=== PATIENT | female | born 1965 | race Caucasian/White ===

== ENCOUNTER 2022-10-24 11:54 | Observation (INO) | payer OTHER, SELFPAY ==
[2022-10-24] VITALS (8 sets, daily range): BP systolic 129–156; BP diastolic 78–95; PULSE 74–86; RESP 16–20; TEMP 36.2–36.7; O2SAT 97–99; BMI 36.4
--- NOTE | 2022-10-24 12:35 | DI.RAD.S_ITS ---
PROCEDURE: XR CHEST 1V INDICATIONS: chest pain TECHNIQUE: One view of the chest was acquired. COMPARISON: None. FINDINGS: Surgical changes and devices: None. Lungs and pleura: Lungs are clear. No pleural effusions or pneumothorax. Mediastinum: Mediastinal contours appear normal. Heart size is normal. Bones and chest wall: No suspicious bony lesions. Overlying soft tissues appear unremarkable. IMPRESSION: No evidence acute pulmonary process. Dictated by: Lucian Villagran M.D. on 10/24/2022 at 14:39 Approved by: Lucian Villagran M.D. on 10/24/2022 at 14:40
[2022-10-24 13:02] LABS: Add Manual Diff / Slide Review NO; Basophils Absolute Auto 100 /uL (0-100); Eosinophils Absolute Auto 200 /uL (0-450); Eosinophils Percent Auto 1.8 % (2-4); Hematocrit 42.1 % (36-46); Hemoglobin 14.3 g/dL (12.0-16.0); Lymphocytes Absolute Auto 2700 /uL (1100-4500); Mean Corpuscular Hemoglobin 29.3 PG (26-34); Monocytes Absolute Auto 700 /uL (0-900); Monocytes Percent Auto 7.7 % (3-14); Neutrophils Absolute Auto 5000 /uL (1500-7000); Neutrophils Percent Auto 58.5 % (50-75); Platelet Count 341 X10^3/uL (150-400); Red Blood Cell Count 4.89 X10^6/uL (4.0-5.2); Red Cell Distribution Width 13.5 % (11.6-14.8); White Blood Cell Count 8.6 X10^3/uL (4.5-11.0)
--- NOTE | 2022-10-24 13:04 | ED.GENADULT ---
HPI - General Adult General Chief complaint: Dizziness Stated complaint: lightheaded/dizzy Time Seen by Provider: 10/24/22 12:47 Mode of arrival: Ambulatory History of Present Illness HPI narrative: Patient complains off and on left chest pain and neck pain with palpitations in the past 2 weeks. Has not been able to see primary care for this problem. History of stress test 2 years ago in [facility] outpatient. She states the results did show leaky valve on echocardiogram. She did follow up with a engineer steam. She states that the results were reassuring at that time. Patient today had worsening palpitations. She did have left-sided chest pain left neck pain yesterday. She thought it was a spasm and took home Flexeril at bedtime. Awoke this morning without neck pain or chest pain but has had intermittent dizziness through the day with elevated heart rate up to 120 beats per minute. Family history reveals father with [place]/. Patient does not smoke. She does have high blood pressure. Dizziness is not triggered by any events. No recent fluid loss no nausea vomiting diarrhea no black or bloody stools. Related Data Home Medications Medication Instructions Recorded Confirmed lisinopril 20 mg tablet 20 mg PO BEDTIME blood pressure 10/24/22 10/24/22 meloxicam 15 mg tablet 15 mg PO DAILY arthritis 10/24/22 10/24/22 Allergies Allergy/AdvReac Type Severity Reaction Status Date / Time sulfamethoxazole Allergy Verified 10/24/22 12:21 [From Bactrim] trimethoprim [From Bactrim] Allergy Verified 10/24/22 12:21 Review of Systems Review of Systems Narrative: GENERAL: negative chills, fatigue, malaise, fever, sweats. HEENT: negative sinus pain, ear pain, sore throat RESPIRATORY: negative dyspnea, cough CARDIOVASCULAR: Positive chest pain, palpitations GASTROINTESTINAL: negative nausea, vomiting, abdominal pain : negative dysuria, frequency, hematuria MUSCULOSKELETAL: negative muscle or bony pain SKIN: negative rash, skin lesions NEUROLOGIC: negative weakness, numbness positive dizziness ROS Unobtainable: All systems reviewed & are unremarkable except as noted in HPI and below Patient History Medical History (Updated 10/24/22 @ 16:57 by Adarsh Wbeb DO) HTN (hypertension) Surgical History (Updated 10/24/22 @ 16:57 by Adarsh Webb DO) No pertinent past surgical history Family History (Updated 10/24/22 @ 16:58 by Adarsh Webb DO) Grandfather CAD (coronary artery disease) Social History (Updated 10/24/22 @ 16:58 by Adarsh Webb DO) household members: none Smoking Status: Never smoker alcohol intake: never substance use type: does not use Smoking Status: Never smoker Substance Use Type: does not use Exam Narrative Exam Narrative: GENERAL: in no distress, not toxic not dyspneic HEAD: Normocephalic. EYES: Pupils equal round ENT: Mucous membranes moist. NECK: Trachea midline. CARDIOVASCULAR: Regular rate and rhythm RESPIRATORY: Clear to auscultation. Breath sounds equal bilaterally. No wheezes, rales, or rhonchi. GASTROINTESTINAL: Abdomen soft, non-tender EXTREMITIES: No gross deformities. BACK: No flank tenderness. NEURO: AOx4. Patient stood up at bedside. No dizziness. Steady self gait, not ataxic, no dizziness. SKIN: Warm and dry PSYCH: Not anxious, is cooperative Initial Vital Signs Initial Vital Signs: Vital Signs Temperature 98.0 F 10/24/22 12:22 Pulse Rate 80 10/24/22 12:22 Respiratory Rate 16 10/24/22 12:22 Blood Pressure 151/79 H 10/24/22 12:22 Pulse Oximetry 99 10/24/22 12:22 Oxygen Delivery Method Room Air 10/24/22 12:22 Scores HEART Score Heart Score history: Slightly Suspicious Heart Score EKG: Normal Heart Score Age: 45-64 years old Heart Score risk factors: 1-2 risk factors Heart Score troponin: < or = to normal limit Heart Score Total: 2 Course Orders Ordered: Discontinued Medications Acetaminophen (Acetaminophen 325 Mg Tablet) 650 mg PO Q6H PRN PRN Reason: Fever/Mild Pain (1-3) Last Admin: 10/24/22 20:55 Dose: 650 mg Documented By: CT Aspirin (Aspirin 81 Mg Chew Tab) 324 mg PO NOW ONE Stop: 10/24/22 15:44 Last Admin: 10/24/22 16:14 Dose: 324 mg Documented By: RLS Aspirin (Aspirin Ec 81 Mg Tablet) 81 mg PO DAILY [facility] Last Admin: 10/25/22 09:09 Dose: 81 mg Documented By: HCW Atorvastatin Calcium (Atorvastatin 20 Mg Tablet) 40 mg PO BEDTIME [facility] Last Admin: 10/24/22 20:58 Dose: Not Given Documented By: CT Lisinopril (Lisinopril 20 Mg Tablet) 20 mg PO BEDTIME [facility] Last Admin: 10/24/22 20:54 Dose: 20 mg Documented By: CT Naloxone HCl (Naloxone 0.4 Mg/Ml Vial) 0.2 mg IV Q2MIN PRN PRN Reason: Opiate Reversal Ondansetron HCl (Ondansetron 4 Mg/2 Ml Inj) 4 mg IV Q8HR PRN PRN Reason: Nausea And Vomiting Last Admin: 10/24/22 20:57 Dose: 4 mg Documented By: CT Vital Signs Vital signs: Vital Signs - 8 hr 10/24/22 12:22 10/24/22 13:47 10/24/22 16:12 Temperature 98.0 F Pulse Rate 80 77 74 Respiratory Rate 16 18 Blood Pressure 151/79 H 137/82 153/78 H Pulse Oximetry 99 99 97 Oxygen Delivery Method Room Air Room Air Room Air 10/24/22 15:05 Temperature Pulse Rate 80 Respiratory Rate 16 Blood Pressure 129/78 Pulse Oximetry 98 Oxygen Delivery Method Room Air Medical Decision Making Lab Data 10/25/22 05:38 10/25/22 05:38 Labs: Lab Results 10/24/22 10/24/22 10/24/22 Range/Units 12:53 12:53 12:53 WBC 8.6 (4.5-11.0) X10^3/uL RBC 4.89 (4.0-5.2) X10^6/uL Hgb 14.3 (12.0-16.0) g/dL Hct 42.1 (36-46) % MCV 86.0 (80-100) fL MCH 29.3 (26-34) PG MCHC 34.0 (30-36) % RDW 13.5 (11.6-14.8) % Plt Count 341 (150-400) X10^3/uL Neut % (Auto) 58.5 (50-75) % Lymph % (Auto) 31.0 (25-40) % [place] % (Auto) 7.7 (3-14) % Eos % (Auto) 1.8 L (2-4) % Baso % (Auto) 1.0 (0-2) % Neut # (Auto) 5000 (3813-4613) /uL Lymph # (Auto) 2700 (8819-1661) /uL [place] # (Auto) 700 (0-900) /uL Eos # (Auto) 200 (0-450) /uL Baso # (Auto) 100 (0-100) /uL PT 12.5 (10.1-12.7) SECONDS INR 1.1 (0.9-1.3) APTT 27 (26-36) SECONDS D-Dimer (<500) ng/ml Sodium 137 (137-145) mmol/L Potassium 4.2 (3.4-5.1) mmol/L Chloride 100 (98-107) mmol/L Carbon Dioxide 30 (22-32) mmol/L BUN 12 (7-17) mg/dL Creatinine 0.60 (0.52-1.04) mg/dL Estimated GFR > 60 (>60) mL/min BUN/Creatinine Ratio 20.0 (6-22) Glucose 96 (70-100) mg/dL Calcium 9.3 (8.4-10.2) mg/dL Magnesium 2.3 (1.6-2.3) mg/dL Total Bilirubin 1.0 (0.2-1.3) mg/dL AST 36 (14-36) IU/L ALT 39 H (<35) IU/L Alkaline Phosphatase 61 (38-126) U/L Total Creatine Kinase 36 (30-135) U/L Troponin I < 0.012 (0.01-0.034) ng/mL Total Protein 8.5 H (6.3-8.2) g/dL Albumin 4.5 (3.5-5.0) g/dL Globulin 4.0 (1.7-4.1) g/dL Albumin/Globulin Ratio 1.1 (1.0-2.8) Lipase 138 (23-300) U/L 10/24/22 10/24/22 Range/Units 12:53 15:00 WBC (4.5-11.0) X10^3/uL RBC (4.0-5.2) X10^6/uL Hgb (12.0-16.0) g/dL Hct (36-46) % MCV (80-100) fL MCH (26-34) PG MCHC (30-36) % RDW (11.6-14.8) % Plt Count (150-400) X10^3/uL Neut % (Auto) (50-75) % Lymph % (Auto) (25-40) % [place] % (Auto) (3-14) % Eos % (Auto) (2-4) % Baso % (Auto) (0-2) % Neut # (Auto) (5974-2268) /uL Lymph # (Auto) (9697-4852) /uL [place] # (Auto) (0-900) /uL Eos # (Auto) (0-450) /uL Baso # (Auto) (0-100) /uL PT (10.1-12.7) SECONDS INR (0.9-1.3) APTT (26-36) SECONDS D-Dimer 316 (<500) ng/ml Sodium (137-145) mmol/L Potassium (3.4-5.1) mmol/L Chloride (98-107) mmol/L Carbon Dioxide (22-32) mmol/L BUN (7-17) mg/dL Creatinine (0.52-1.04) mg/dL Estimated GFR (>60) mL/min BUN/Creatinine Ratio (6-22) Glucose (70-100) mg/dL Calcium (8.4-10.2) mg/dL Magnesium (1.6-2.3) mg/dL Total Bilirubin (0.2-1.3) mg/dL AST (14-36) IU/L ALT (<35) IU/L Alkaline Phosphatase (38-126) U/L Total Creatine Kinase 37 (30-135) U/L Troponin I < 0.012 (0.01-0.034) ng/mL Total Protein (6.3-8.2) g/dL Albumin (3.5-5.0) g/dL Globulin (1.7-4.1) g/dL Albumin/Globulin Ratio (1.0-2.8) Lipase (23-300) U/L Imaging Data Chest x-ray: Radiologist's Impression: [address] [address] XRay Report Signed Patient: Anusha David MR#: [id number] : 1965 Acct:[id number] Age/Sex: 57 / F Date of Service: 10/24/22 Loc: ED Accession Number: [id number] ?? Procedure: XR chest 1V Ordering Provider: Jared Lyons MD PROCEDURE:? XR CHEST 1V ? INDICATIONS:? chest pain ? TECHNIQUE:? One view of the chest was acquired.? ? COMPARISON:? None. ? FINDINGS:? ? Surgical changes and devices:? None.? ? Lungs and pleura:? Lungs are clear.? No pleural effusions or pneumothorax.? ? Mediastinum:? Mediastinal contours appear normal.? Heart size is normal.? ? Bones and chest wall:? No suspicious bony lesions.? Overlying soft tissues appear unremarkable.? ? IMPRESSION:? No evidence acute pulmonary process. ? ? ? Dictated by: Lucian Villagran M.D. on 10/24/2022 at 14:39 ? ? Approved by: Lucian Villagran M.D. on 10/24/2022 at 14:40 ? [facility] Narrative Medical decision making narrative: Patient complains off and on left chest pain and neck pain with palpitations in the past 2 weeks. Has not been able to see primary care for this problem. History of stress test 2 years ago in [facility] outpatient. She states the results did show leaky valve on echocardiogram. She did follow up with a engineer steam. She states that the results were reassuring at that time. Patient today had worsening palpitations. She did have left-sided chest pain left neck pain yesterday. She thought it was a spasm and took home Flexeril at bedtime. Awoke this morning without neck pain or chest pain but has had intermittent dizziness through the day with elevated heart rate up to 120 beats per minute. Family history reveals father with [place]/. Patient does not smoke. She does have high blood pressure. Dizziness is not triggered by any events. No recent fluid loss no nausea vomiting diarrhea no black or bloody stools. After history and exam CBC CMP EKG troponin magnesium chest x-ray D-dimer [facility] CC: Chest pain dizziness Complicating co-morbidities: High blood pressure Data collected from: Patient Medical records reviewed: No recent visit for this complaint Differential considered: Includes but not limited to [place] acute coronary syndrome pulmonary embolism anemia dehydration arrhythmia Exam documented above, pertinent findings include: No dizziness on standing Lab Test results independently reviewed as above. Pertinent findings: Troponin less than 0.012 x 2 D-dimer 316 AST 36 ALT 39 Independently reviewed EKG normal sinus rhythm rate [address] elevation or depression Imaging studies independently reviewed: Chest x-ray no acute finding Consultations: 3:40 p.m.. Spoke with cardiology Dr. Kirk, recommends admission observation stress test echocardiogram 4:45 p.m. hospitalist, Dr. Webb has seen patient and will admit patient Treatments: ASA Re-evaluations: 3:43 p.m.. Reviewed with patient my discussion with cardiology services, given her age family history and atypical symptoms recommends for admission. At this time I am awaiting call back from hospitalist. Discussion: Appropriate for admission. I have reviewed with cardiology services and as well as hospitalist services. Agree for admission. Needs stress test and echocardiogram Diagnosis: Dizziness, atypical chest pain Discharge Plan Departure Patient Disposition: Admitted as Observation Clinical Impression: Dizziness, Atypical chest pain Admit Date/Time: 10/24/22 16:47 Admit Provider: Adarsh Webb
[2022-10-24 13:12] LABS: INR 1.1 (0.9-1.3); Prothrombin Time 12.5 SECONDS (10.1-12.7)
[2022-10-24 13:14] LABS: Alanine Aminotransferase 39 IU/L (<35); Albumin 4.5 g/dL (3.5-5.0); Albumin Globulin Ratio 1.1 (1.0-2.8); Alkaline Phosphatase 61 U/L (38-126); Aspartate Aminotransferase 36 IU/L (14-36); Blood Urea Nitrogen 12 mg/dL (7-17); Calcium 9.3 mg/dL (8.4-10.2); Carbon Dioxide 30 mmol/L (22-32); Chloride 100 mmol/L (98-107); Creatine Kinase 36 U/L (30-135); Estimated Glomerular Filt Rate > 60 mL/min (>60); Glucose 96 mg/dL (70-100); HEMOLYSIS 31 (0-50); Lipase 138 U/L (23-300); Magnesium 2.3 mg/dL (1.6-2.3); Potassium 4.2 mmol/L (3.4-5.1); Sodium 137 mmol/L (137-145); Total Protein 8.5 g/dL (6.3-8.2)
[2022-10-24 13:15] LABS: PTT Partial Thromboplastin Tim 27 SECONDS (26-36)
[2022-10-24 13:24] LABS: D Dimer 316 ng/ml (<500)
[2022-10-24 13:26] LABS: Troponin I < 0.012 ng/mL (0.01-0.034)
[2022-10-24 15:17] LABS: Creatine Kinase 37 U/L (30-135)
[2022-10-24 15:30] LABS: Troponin I < 0.012 ng/mL (0.01-0.034)
[2022-10-24] MEDS: ASPIRIN 81 MG CHEW TAB 324 MG PO (16:14)
--- NOTE | 2022-10-24 16:53 | PM.HP.1 ---
History of Present Illness History of Present Illness Date Patient Seen: 10/24/22 Time Patient Seen: 16:57 Chief complaint: lightheaded/dizzy Narrative: This is a 57 year old female with PMH of HTN who presents after an episode of dizziness and left shoulder pain. Patient has had intermittent left shoulder squeezing / muscular type pain she states over the last couple of days. She also reports intermittent but not associated sharp, brief pains in the middler of her sternum. She took a flexeril last night and had no discomfort this morning. This morning at her desk at work, her fit-bit told her her heart rate was high. It reached a peak of around 120. She noted some palpitations but did not notice her shoulder discomfort at the time. She felt slightly dizzy, but had no syncope. She does not recall that her heart rate was irregular. She denies dyspnea on exertion, orthopnea, or lower extremity edema. She had a similar episode around 2 years ago, where she had outpatient holter monitor (reveled intermittent tachycardia, not further specified), echocardiogram (showed mild valvular regurg based on patient's description), and stress testing (low risk). In the emergency room, patient was mildly hypertensive, but the remainder of her vitals were unremarkable. Troponins were negative. CXR was unremarkable. EKG showed NSR with borderline LVH. D-dimer was negative. ER provider discussed with cardiology, whom recommended stress testing. Given patient's HEART score of 2-3, negative troponins, and reassuring history and exam I discussed with the environmental engineering technician as well, whom stated either outpatient or inpatient evaluation could be performed in this situation. I discussed with the patient risks and benefits of discharge home with outpatient follow up, or observation admission for stress testing. Patient elected for admission. [facility] Medical History (Updated 10/24/22 @ 16:57 by dAarsh Webb DO) HTN (hypertension) Surgical History (Updated 10/24/22 @ 16:57 by Adarsh Webb DO) No pertinent past surgical history Family History (Updated 10/24/22 @ 16:58 by Adarsh Webb DO) Grandfather CAD (coronary artery disease) Social History (Updated 10/24/22 @ 16:58 by Adarsh Webb DO) Smoking Status: Never smoker alcohol intake: never substance use type: does not use Meds Home Medications and Allergies Home Medications Medication Instructions Recorded Confirmed Type lisemanipril-hydrochlorothiazide PO 08/08/18 08/08/18 History thyroid med PO 08/08/18 08/08/18 History lisinopril 20 mg tablet 20 mg PO BEDTIME blood pressure 10/24/22 10/24/22 History Allergies Allergy/AdvReac Type Severity Reaction Status Date / Time sulfamethoxazole Allergy Verified 10/24/22 12:21 [From Bactrim] trimethoprim [From Bactrim] Allergy Verified 10/24/22 12:21 Review of Systems Review of Systems Narrative: All other systems reviewed with the patient and are negative unless otherwise stated. Exam Vital Signs (past 8 hours): - 10/24/22 12:22 10/24/22 13:47 10/24/22 16:12 Temperature 98.0 F Pulse Rate 80 77 74 Respiratory Rate 16 18 Blood Pressure 151/79 H 137/82 153/78 H Pulse Oximetry 99 99 97 Oxygen Delivery Method Room Air Room Air Room Air 10/24/22 15:05 Temperature Pulse Rate 80 Respiratory Rate 16 Blood Pressure 129/78 Pulse Oximetry 98 Oxygen Delivery Method Room Air Oxygen Delivery Method Room Air Narrative Exam Narrative: General:? Patient is well developed and well nourished, in no distress at this time. HEENT:? Normocephalic, atraumatic, extraocular muscles intact, oral pharynx is clear and mucous membranes are moist. Neck: supple and symmetric, trachea is midline, no cervical adenopathy. Negative for JVD Chest:? Normal AP diameter and contour without kyphoscoliosis, no tachypnea, equal chest rise bilaterally. Lungs:? CTA b/l no wheezing rhonchi or rales. Cardio:?RRR no m/r/g. Abdomen: S NT ND. No CVA tenderness. Musculoskeletal:? Muscle strength and tone are equal within normal limits, no deformity. Extremities: No edema or joint effusions. No cyanosis or clubbing. Skin:? Pale,? Warm to touch,dry and intact without rashes, ulcerations or petechiae.? Neuro:? Alert and orientated x3,? sensation to touch intact in all extremities, no gross deficits noted of cranial nerves. Psych:? Patient has a well-kept appearance, appropriate affect, mental status attitude thought context and judgment are appropriate for age. Objective ECG Impression: Normal sinus rhythm, borderline LVH, as interpreted by [place] Labs 10/24/22 12:53 10/24/22 12:53 Labs: Laboratory Results - last 24 hr 10/24/22 10/24/22 10/24/22 12:53 12:53 12:53 WBC 8.6 RBC 4.89 Hgb 14.3 Hct 42.1 MCV 86.0 MCH 29.3 MCHC 34.0 RDW 13.5 Plt Count 341 Neut % (Auto) 58.5 Lymph % (Auto) 31.0 [place] % (Auto) 7.7 Eos % (Auto) 1.8 L Baso % (Auto) 1.0 Neut # (Auto) 5000 Lymph # (Auto) 2700 [place] # (Auto) 700 Eos # (Auto) 200 Baso # (Auto) 100 PT 12.5 INR 1.1 APTT 27 D-Dimer Sodium 137 Potassium 4.2 Chloride 100 Carbon Dioxide 30 BUN 12 Creatinine 0.60 Estimated GFR > 60 BUN/Creatinine Ratio 20.0 Glucose 96 Calcium 9.3 Magnesium 2.3 Total Bilirubin 1.0 AST 36 ALT 39 H Alkaline Phosphatase 61 Total Creatine Kinase 36 Troponin I < 0.012 Total Protein 8.5 H Albumin 4.5 Globulin 4.0 Albumin/Globulin Ratio 1.1 Lipase 138 10/24/22 10/24/22 12:53 15:00 WBC RBC Hgb Hct MCV MCH MCHC RDW Plt Count Neut % (Auto) Lymph % (Auto) [place] % (Auto) Eos % (Auto) Baso % (Auto) Neut # (Auto) Lymph # (Auto) [place] # (Auto) Eos # (Auto) Baso # (Auto) PT INR APTT D-Dimer 316 Sodium Potassium Chloride Carbon Dioxide BUN Creatinine Estimated GFR BUN/Creatinine Ratio Glucose Calcium Magnesium Total Bilirubin AST ALT Alkaline Phosphatase Total Creatine Kinase 37 Troponin I < 0.012 Total Protein Albumin Globulin Albumin/Globulin Ratio Lipase Assessment & Plan Assessment & Plan narrative: 1. Atypical chest pain - suspect musculoskeletal cause, continue tylenol prn, flexeril okay as well if symptoms return. Differential includes atypical chest pain, anxiety, and others. - HEART score 2-3, with stress testing <2 years ago per patient report. Discussed with cardiology provider personally, either inpatient or outpatient evaluation reasonable given low heart scoring. Discussed with patient whom opted for inpatient evaluation after risk-benefit discussion. - stress testing and echo ordered. Patient was due for TTE after 2 years for suspected mild valvular regurg based on her reporting. - continue telemetry to monitor for tachycardia. - orthostatics negative on my evaluation with no significant changes to HR or blood pressure with standing. - TSH, lipids, a1c ordered. - troponin negative x2 in the ER, given presentation with pain the evening before, no further testing felt to be necessary. 2. HTN - continue home lisinopril 3. Obesity, BMI 36, class II - The patient is at much higher risk for medical and surgical complications because of their obesity. This increases the difficulty and complexity of medical and surgical interventions and increases the chances of poor outcomes such as morbidity and mortality. Code: Full, surrogate is patient's sister DVT: low risk, ambulatory Dispo: admit observation, probable discharge home tomorrow after stress testing. I have utilized all available immediate resources to obtain, update, or review the patient's current medications. Additional history obtained via discussion with ER provider, as well as discussion with environmental engineering technician. I have reviewed patient's imaging, labs, documentation, and EKG personally. Discussed plan of care with patient. Quality MIPS - Admit I confirm the patient?s Advance Care Plan is present, Code status is documented, Surrogate decision maker is in patient?s record [If Yes, STOP here]: Yes
--- NOTE | 2022-10-24 17:33 | DI.ECHO.S_ITS ---
[facility]---------+ [facility] +---------+ : : [address] : : : : [id number] : : : : Phone: [phone] Echocardiogram Report + + :Name: CAMACHO SANTOS Study Date: 10/25/2022 Height: 65 in : :[facility] ReadingLocation: Weight: 219 lb : : Gender: Female BSA: 2.1 m2 : :: 1965 Age: 57 yrs BP: 126/75 mmHg: :Reason For Study: PALPITATIONS, CHEST PAIN : :Ordering Physician: [place], : :BEN SPENCER Performed By: Loulou Griffin : :Referring: BEN DELAROSA : + + Interpretation Summary 1) Normal left ventricular thickness, size, wall motion, and systolic function (EF 55-60%). 2) Normal right ventricular size and function. 3) No significant valvular abnormalities. 4) No prior Echo available for comparison. Procedure: A two-dimensional transthoracic echocardiogram with color flow and Doppler was performed. The study quality was technically adequate. There is no prior echocardiogram noted for this patient. The patient was in sinus rhythm with heart rates between 62-74 bpm during the exam. Left Ventricle: The left ventricle is normal in size and wall thickness. The ejection fraction is estimated to be 55-60%. Left ventricular systolic function appears normal without focal wall motion abnormalities. Diastolic parameters suggest probable normal left ventricular diastolic function and normal filling pressures. Right Ventricle: The right ventricle is normal in size and function. Atria: The left atrial size is normal. Right atrial size is normal. There is no Doppler evidence for an interatrial shunt. Mitral Valve: The mitral valve is normal in structure and function. There is trace mitral regurgitation. Aortic Valve: The aortic valve is trileaflet. The aortic valve opens well. There is no aortic valve stenosis. No aortic regurgitation is present. Tricuspid Valve: The tricuspid valve is normal in structure and function. There is mild tricuspid regurgitation. The right ventricular systolic pressure is estimated to be at least 19 mmHg based on an estimated right atrial pressure of 3 mm Hg. Pulmonic Valve: The pulmonic valve is not well visualized. There is trace pulmonic regurgitation. Great Vessels: The aortic root is normal size. The dimensions of the ascending aorta are normal. The IVC is of normal diameter and collapses greater than 50% with a sniff. This suggests a low right atrial pressure of 3 mm Hg. Pericardium/ Pleura There is no pericardial effusion. There is no pleural effusion. MMode/2D Measurements & Calculations LVIDd: 5.0 cm LVOT diam: 2.1 cm LVIDs: 3.6 cm Ao root diam: 3.4 cm FS: 26.5 % asc Aorta Diam: 3.6 cm EPSS: 1.1 cm Ao Arch Diam (Prox Trans): 2.9 cm IVSd: 0.78 cm LVPWd: 0.71 cm LV bernard. diameter/BSA (cm/m^2): 2.4 LV sys. diameter/BSA (cm/m^2): 1.8 LA A2 area: 12.8 cm2 RA long axis: 4.3 cm LA A4 area: 13.4 cm2 RA area: 11.2 cm2 LA length (vol): 5.2 cm RA vol: 25.1 ml LA vol: 28.0 ml RA : 12.2 ml/m2 LA vol index: 13.6 ml/m2 IVC diam: 1.4 cm RVD1 (basal): 2.9 cm RVD2 (mid): 2.1 cm TAPSE: 1.9 cm Doppler Measurements & Calculations Ao V2 max: 114.6 cm/sec LVOT Max Dez: 93.1 cm/sec Ao V2 mean: 79.2 cm/sec LV V1 max P.5 mmHg Ao max P.2 mmHg LV V1 VTI: 21.2 cm Ao mean P.8 mmHg ALEX(I,D): 3.2 cm2 Ao V2 VTI: 23.2 cm ALEX(V,D): 2.8 cm2 sev ratio: 0.91 ALEX indexed to BSA (cm^2/m^2): 1.6 MV E max dez: 80.1 cm/sec TR max dez: 198.2 cm/sec MV A max dez: 75.3 cm/sec TR max P.7 mmHg MV E/A: 1.1 PA V2 max: 86.8 cm/sec Med Peak E' Dez: 7.8 cm/sec PA V2 mean: 58.1 cm/sec E/E' med: 10.3 PA mean P.5 mmHg Lat Peak E' Dez: 13.2 cm/sec PA pr(Accel): 36.2 mmHg E/E' lat: 6.1 E/e' average: 8.2 MV dec time: 0.23 sec Pulm A Revs Dez: 27.8 cm/sec SV(LVOT): 74.0 ml Pulm A Revs Dur: 0.13 sec Reading Physician:08:29 AM
[2022-10-24] MEDS: lisinopriL 20 MG TABLET PO (20:54)
[2022-10-24] MEDS: ACETAMINOPHEN 325 MG TABLET 650 MG PO (20:55)
[2022-10-24] MEDS: ONDANSETRON 4 MG/2 ML INJ IV (20:57)
[2022-10-25] VITALS (7 sets, daily range): BP systolic 126–130; BP diastolic 72–76; PULSE 64–74; RESP 18–20; TEMP 36.1–36.8; O2SAT 98–100
[2022-10-25 06:17] LABS: Add Manual Diff / Slide Review NO; Basophils Absolute Auto 100 /uL (0-100); Basophils Percent Auto 0.8 % (0-2); Eosinophils Absolute Auto 100 /uL (0-450); Eosinophils Percent Auto 2.3 % (2-4); Hematocrit 39.8 % (36-46); Hemoglobin 13.5 g/dL (12.0-16.0); Lymphocytes Absolute Auto 2600 /uL (1100-4500); Lymphocytes Percent Auto 38.8 % (25-40); Mean Corpuscular HGB Conc 33.8 % (30-36); Mean Corpuscular Hemoglobin 28.9 PG (26-34); Mean Corpuscular Volume 85.5 fL (80-100); Monocytes Absolute Auto 600 /uL (0-900); Monocytes Percent Auto 8.3 % (3-14); Neutrophils Absolute Auto 3300 /uL (1500-7000); Neutrophils Percent Auto 49.8 % (50-75); Platelet Count 307 X10^3/uL (150-400); Red Blood Cell Count 4.66 X10^6/uL (4.0-5.2); Red Cell Distribution Width 13.5 % (11.6-14.8); White Blood Cell Count 6.6 X10^3/uL (4.5-11.0)
[2022-10-25 06:21] LABS: Alanine Aminotransferase 35 IU/L (<35); Albumin Globulin Ratio 1.1 (1.0-2.8); Alkaline Phosphatase 51 U/L (38-126); Aspartate Aminotransferase 30 IU/L (14-36); BUN Creatinine Ratio 15.6 (6-22); Bilirubin Total 1.2 mg/dL (0.2-1.3); Blood Urea Nitrogen 10 mg/dL (7-17); Calcium 9.2 mg/dL (8.4-10.2); Carbon Dioxide 31 mmol/L (22-32); Chloride 102 mmol/L (98-107); Estimated Glomerular Filt Rate > 60 mL/min (>60); Globulin 3.5 g/dL (1.7-4.1); Glucose 100 mg/dL (70-100); HEMOLYSIS < 15 (0-50); Magnesium 2.2 mg/dL (1.6-2.3); Potassium 4.3 mmol/L (3.4-5.1); Sodium 138 mmol/L (137-145); Total Protein 7.5 g/dL (6.3-8.2)
[2022-10-25 06:51] LABS: TSH w/ Reflex to FT4 4.02 uIU/mL (0.47-4.68)
[2022-10-25] MEDS: ASPIRIN EC 81 MG TABLET PO (09:09)
--- NOTE | 2022-10-25 11:32 | CM.DANOTE ---
Initial DCP Assessment Note Pt is a 57 yo female, resident of [place], presents with atypical chest pain admitted OBS for chest pain r/o. Stress test and echo today then likely home w/outpatient follow up PCP: Liliana Hanna Payer: Horacio Ferraro Medical Reviewed chart, pt discussed in multidisciplinary rounds this morning. Patient expected to discharge after stress test. Ambulating in room No barriers identified at this time to patient's safe discharge home w/family to assist; close outpatient f/u recommended. KATY Oleary Discharge Planning/Care Management CM Discharge Assessment Start: 10/25/22 11:21 Freq: Status: Active Protocol: Document 10/25/22 11:21 DREA (Rec: 10/25/22 11:31 DREA [id number]) Discharge Planning Assessment Assigned Engine Cleaner KATY Kaur DPOA/Assigned Designee Name mother Wright Contact Information [phone] Advance Directives? No History Provided By Patient,Medical Record Prior Living Arrangements House Household Members none Type of transporation used prior to Drives own vehicle admit Independent with ADL's Yes Is patient alert and oriented? Yes Barriers to Discharge No Discharge Plan Home Transportation Arrangement Family or friend Referrals Initiated None needed
--- NOTE | 2022-10-25 16:15 | P.DS_ITS ---
History of Present Illness History of Present Illness Date Patient Seen: 10/25/22 Time Patient Seen: 13:00 Chief complaint: lightheaded/dizzy Narrative: This is a 57 year old female with PMH of HTN who presents after an episode of dizziness and left shoulder pain. Patient has had intermittent left shoulder squeezing / muscular type pain she states over the last couple of days. She also reports intermittent but not associated sharp, brief pains in the middler of her sternum. She took a flexeril last night and had no discomfort this morning. This morning at her desk at work, her fit-bit told her her heart rate was high. It reached a peak of around 120. She noted some palpitations but did not notice her shoulder discomfort at the time. She felt slightly dizzy, but had no syncope. She does not recall that her heart rate was irregular. She denies dyspnea on exertion, orthopnea, or lower extremity edema. She had a similar episode around 2 years ago, where she had outpatient holter monitor (reveled intermittent tachycardia, not further specified), echocardiogram (showed mild valvular regurg based on patient's description), and stress testing (low risk). In the emergency room, patient was mildly hypertensive, but the remainder of her vitals were unremarkable. Troponins were negative. CXR was unremarkable. EKG showed NSR with borderline LVH. D-dimer was negative. ER provider discussed with cardiology, whom recommended stress testing. Given patient's HEART score of 2-3, negative troponins, and reassuring history and exam I discussed with the cardio logist as well, whom stated either outpatient or inpatient evaluation could be performed in this situation. I discussed with the patient risks and benefits of discharge home with outpatient follow up, or observation admission for stress testing. Patient elected for admission. Discharge Providers Provider Date of admission: 10/24/22 16:47 Discharge Date: 10/25/22 Primary care physician: Liliana Hanna PA-C Discharge provider: Adarsh Webb DO Summary Hospital Course Discharge Diagnosis: 1. Atypical chest pain 2. HTN 3. Obesity, BMI 36, class II Hospital Course: 57 F admitted for further evaluation of left shoulder and chest pain, with dizziness. Initial HEART score was 2-3, patient was counseled on options after cardiology recommended either inpatient or outpatient evaluation, she elected for inpatient stress testing. Echocardiogram and non-nuclear treadmill stress testing were unremarkable. Given patient's presentation, this jhonnyley represented musculoskeletal pain. She is encouraged to follow up with her PCP as previously scheduled. No changes to her home medications are recommended at the time of discharge. Time Spent with Patient Time spent: Less than 30 minutes Exam Vital Signs (past 8 hours): - 10/25/22 09:09 10/25/22 11:37 Temperature 98.3 F Pulse Oximetry 98 Oxygen Delivery Method Room Air Oxygen Flow Rate 0 Oxygen Delivery Method Room Air Oxygen Flow Rate 0 Narrative Exam Narrative: General:? Patient is well developed and well nourished, in no distress at this time. Ext: No edema Objective Labs 10/25/22 05:38 10/25/22 05:38 Labs: Laboratory Results - last 24 hr 10/25/22 10/25/22 10/25/22 05:38 05:38 05:38 WBC 6.6 RBC 4.66 Hgb 13.5 Hct 39.8 MCV 85.5 MCH 28.9 MCHC 33.8 RDW 13.5 Plt Count 307 Neut % (Auto) 49.8 L Lymph % (Auto) 38.8 [place] % (Auto) 8.3 Eos % (Auto) 2.3 Baso % (Auto) 0.8 Neut # (Auto) 3300 Lymph # (Auto) 2600 [place] # (Auto) 600 Eos # (Auto) 100 Baso # (Auto) 100 Sodium 138 Potassium 4.3 Chloride 102 Carbon Dioxide 31 BUN 10 Creatinine 0.64 Estimated GFR > 60 BUN/Creatinine Ratio 15.6 Glucose 100 Calcium 9.2 Magnesium 2.2 Total Bilirubin 1.2 AST 30 ALT 35 H Alkaline Phosphatase 51 Total Protein 7.5 Albumin 4.0 Globulin 3.5 Albumin/Globulin Ratio 1.1 TSH 4.02 [facility] Medical History (Updated 10/24/22 @ 16:57 by Adarsh Webb DO) HTN (hypertension) Surgical History (Updated 10/24/22 @ 16:57 by Adarsh Webb DO) No pertinent past surgical history Family History (Updated 10/24/22 @ 16:58 by Adarsh Webb DO) Grandfather CAD (coronary artery disease) Social History (Updated 10/24/22 @ 16:58 by Adarsh Webb DO) household members: none Smoking Status: Never smoker alcohol intake: never substance use type: does not use Discharge Plan Discharge Plan Patient Disposition: Home Provider Discharge Comment: You were admitted to the hospital with dizziness and atypical chest pain. Stress testing and ultrasound were normal. There continues to be very mild valve leak that was noted two years ago that is unchanged. No changes to your home medications are recommended at the time of discharge. Discharge orders & Medications Prescriptions: Continued lisinopril 20 mg tablet 20 mg PO BEDTIME meloxicam 15 mg tablet 15 mg PO DAILY Follow up/Referrals: Liliana Hanna PA-C [Primary Care Provider] - Diet/Activity/Treatments Diet: Diet as Tolerated and Regular Activity: As tolerated, no restrictions Visit Report/Discharge Packet Instructions: DI for Atypical Chest Pain Stand Alone Forms: Patient Portal/API, Stroke Signs & Symptoms Discharge Data Primary Care Provider: Liliana Hanna Attending Provider: Adarsh Webb Admit Date/Time: 10/24/22 16:47 Discharges patient from system. Discharge Date/Time: 10/25/22 13:42 Quality VTE Deep Vein Thrombosis/Pulmonary Embolism Present on Admission: No
[2022-10-25 22:10] LABS: x Labcorp Estim. Avg Glu (eAG) 117 mg/dL (.); x Labcorp Hemoglobin A1c 5.7 % (4.8-5.6)
--- NOTE | 2022-10-26 12:24 | DI.NM.S_ITS ---
DATE OF SERVICE: 10/25/2022 PROCEDURE: Exercise stress test. INDICATIONS: Left arm pain with underlying hypertension CARDIAC STRESS: Patient underwent exercise stress test under the supervision of an attending staff. She walked on Lars protocol for 7 minutes and 21 seconds, achieved maximum heart rate of 175, which was 107% of target heart rate. Normal blood pressure response. Resting blood pressure 128/80 and peak blood pressure 175/80. Achieved 10.1 METs of workload. QUAN -2%. Baseline rhythm sinus. During stress, no convincing ischemic changes seen. Rare PVCs. No chest pain or anginal symptoms. CONCLUSION: Exercise stress test is negative for inducible ischemia. Normal hemodynamic response. Fair exercise tolerance. Rare PVCs without any complex arrhythmias. No anginal symptoms. Overall, low- risk exercise stress test. Anusha David - THI/samantha/ doc#: [id number]/job#: [id number] dd: 10/25/2022 12:44:00 dt: 10/25/2022 18:38:00 DICTATING /COPIES TO: Sunday Kirk MD COPIES MNE: MADHAVI;
== END 2022-10-25 13:42 | disposition home or self-care (01) ==
LOC: ED 15:44 → AC 16:47
PROVIDERS: Internal Medicine Gastroenterology; Admitting Provider Internal Medicine; Emergency Provider Emergency Medicine; PCP Physician Assistant Medical; Referring Provider Emergency Medicine; Visit Provider Internal Medicine
DX: R42 Dizziness and giddiness (principal); R07.89 Other chest pain; I10 Essential (primary) hypertension; E66.9 Obesity, unspecified; Z68.36 Body mass index [BMI] 36.0-36.9, adult
CPT/HCPCS: 36415; 71045; 80053; 82550; 83036; 83690; 83735; 84443; 84484; 85025; 85379; 85610; 85730; 93005; 93017; 93306; 96374; 99284; G0378; J2405

== ENCOUNTER 2023-03-06 20:28 | Emergency (ER) | payer OTHER, SELFPAY ==
[2022-10-24 17:26] VITALS: BMI 36.4
[2023-03-06] VITALS (8 sets, daily range): BP systolic 131–171; BP diastolic 74–83; PULSE 68–90; RESP 14–24; TEMP 36.5–36.8; O2SAT 97–98; BMI 35.7
--- NOTE | 2023-03-06 20:33 | DI.RAD.S_ITS ---
PROCEDURE: XR CHEST 1V INDICATIONS: chest pain TECHNIQUE: One view of the chest was acquired. COMPARISON: [facility], CR, XR CHEST 1V, 10/24/2022, 12:54. FINDINGS: Surgical changes and devices: None. Lungs and pleura: Lungs are clear. No pleural effusions or pneumothorax. Mediastinum: Mediastinal contours appear normal. Heart size is normal. Bones and chest wall: No suspicious bony lesions. Overlying soft tissues appear unremarkable. IMPRESSION: No acute cardiopulmonary abnormalities or focal airspace disease. Dictated by: Trent Alonso M.D. on 03/06/2023 at 21:42 Approved by: Trent Alonso M.D. on 03/06/2023 at 21:42
[2023-03-06 21:34] LABS: Add Manual Diff / Slide Review NO; Basophils Absolute Auto 0 /uL (0-100); Basophils Percent Auto 0.4 % (0-2); Eosinophils Absolute Auto 100 /uL (0-450); Eosinophils Percent Auto 1.2 % (2-4); Hematocrit 39.9 % (36-46); Hemoglobin 13.7 g/dL (12.0-16.0); Lymphocytes Absolute Auto 3100 /uL (1100-4500); Lymphocytes Percent Auto 31.4 % (25-40); Mean Corpuscular HGB Conc 34.4 % (30-36); Mean Corpuscular Hemoglobin 29.2 PG (26-34); Mean Corpuscular Volume 84.9 fL (80-100); Monocytes Absolute Auto 600 /uL (0-900); Monocytes Percent Auto 6.2 % (3-14); Neutrophils Absolute Auto 6100 /uL (1500-7000); Neutrophils Percent Auto 60.8 % (50-75); Platelet Count 343 X10^3/uL (150-400); Red Cell Distribution Width 13.7 % (11.6-14.8)
[2023-03-06 21:37] LABS: INR 1.1 (0.9-1.3)
[2023-03-06 21:39] LABS: PTT Partial Thromboplastin Tim 30 SECONDS (25.1-36.5)
[2023-03-06 21:42] LABS: Alanine Aminotransferase 32 IU/L (<35); Albumin 4.2 g/dL (3.5-5.0); Albumin Globulin Ratio 1.1 (1.0-2.8); Alkaline Phosphatase 43 U/L (38-126); Aspartate Aminotransferase 32 IU/L (14-36); Bilirubin Total 1.1 mg/dL (0.2-1.3); Blood Urea Nitrogen 12 mg/dL (7-17); Calcium 9.7 mg/dL (8.4-10.2); Carbon Dioxide 26 mmol/L (22-32); Chloride 101 mmol/L (98-107); Creatine Kinase 32 U/L (30-135); Estimated Glomerular Filt Rate > 60 mL/min (>60); Globulin 3.7 g/dL (1.7-4.1); Glucose 98 mg/dL (70-100); HEMOLYSIS 53 (0-50); Lipase 137 U/L (23-300); Potassium 4.1 mmol/L (3.4-5.1); Sodium 136 mmol/L (137-145); Total Protein 7.9 g/dL (6.3-8.2)
[2023-03-06 21:53] LABS: Troponin I < 0.012 ng/mL (0.01-0.034)
--- NOTE | 2023-03-06 22:11 | ED_ITS ---
HPI - General Adult General Chief complaint: Dizziness Stated complaint: nausea, dizziness Time Seen by Provider: 03/06/23 21:50 Source: patient Mode of arrival: Ambulatory History of Present Illness HPI narrative: Patient is a 57-year-old female. Has been having issues of intermittent palpitations for several years now. She is not on any medications for these symptoms. She has worn a Holter monitor in the past. Was told that she had ?tachycardia? this was a year or so ago when this was done. Several months ago she had an echocardiogram and a stress test that she states was unremarkable. She states that her palpitations are becoming more persistent specifically when she stands up. Today she stated that she just generally was not feeling very well. She felt like her heart was beating fast. No chest pain. Does have some tingling in her left arm but that seems to come and go and not necessarily associated with the palpitations. She has known cervical spine stenosis. Today she states she was feeling lightheaded. Her fit bit told her that her heart rate was in the 160s. It seemed to be more persistent and more intense today. Related Data Home Medications Medication Instructions Recorded Confirmed lisinopril 20 mg tablet 20 mg PO BEDTIME blood pressure 10/24/22 10/24/22 meloxicam 15 mg tablet 15 mg PO DAILY arthritis 10/24/22 10/24/22 Allergies Allergy/AdvReac Type Severity Reaction Status Date / Time sulfamethoxazole Allergy Verified 10/24/22 12:21 [From Bactrim] trimethoprim [From Bactrim] Allergy Verified 10/24/22 12:21 Review of Systems Constitutional Constitutional: Reports system reviewed and no additional complaints, except as documented Cardiovascular Cardiovascular: Reports system reviewed and no additional complaints, except as documented Respiratory Respiratory: Reports system reviewed and no additional complaints, except as documented Gastrointestinal Gastrointestinal: Reports system reviewed and no additional complaints, except as documented Musculoskeletal Musculoskeletal: Reports system reviewed and no additional complaints, except as documented Neurologic Neurologic: Reports system reviewed and no additional complaints, except as documented Hematologic/Lymphatic On Anticoagulants: No Patient History Medical History HTN (hypertension) Surgical History (Updated 10/24/22 @ 16:57 by Adarsh Webb DO) No pertinent past surgical history Family History (Updated 10/24/22 @ 16:58 by Adarsh Webb DO) Grandfather CAD (coronary artery disease) Social History household members: none Smoking Status: Never smoker alcohol intake: never substance use type: does not use Smoking Status: Never smoker alcohol intake frequency: other Substance Use Type: does not use Exam Initial Vital Signs Initial Vital Signs: Vital Signs Temperature 97.7 F 03/06/23 20:31 Pulse Rate 78 03/06/23 20:31 Respiratory Rate 18 03/06/23 20:31 Blood Pressure 171/81 H 03/06/23 20:31 Pulse Oximetry 98 03/06/23 20:31 Oxygen Delivery Method Room Air 03/06/23 20:31 HENMT Head: normal to inspection and normocephalic Resp Effort & Inspection: normal respiratory effort Auscultation: clear to auscultation bilaterally Cardio Rate: regular rate Rhythm: regular rhythm GI Inspection: normal to inspection and non-distended Palpation: soft Skin General: no rashes or lesions noted Extrem General: normal to inspection and capillary refill normal Psych Appearance: grossly normal and well kempt Course Orders Ordered: ED Orders 03/06/23 20:33 XR chest 1V Stat EKG-12 Lead Stat 03/06/23 21:15 Complete Blood Count AUTO DIFF Stat Comprehensive Metabolic Panel Stat Lipase Stat Magnesium Stat PTT Partial Thromboplastin Devin Stat Prothrombin Time INR Stat Troponin & CK Cardiac Panel Stat Vital Signs Vital signs: Vital Signs - 8 hr 03/06/23 20:31 03/06/23 20:34 03/06/23 21:00 Temperature 97.7 F Pulse Rate 78 90 75 Respiratory Rate 18 23 Blood Pressure 171/81 H Pulse Oximetry 98 98 98 Oxygen Delivery Method Room Air 03/06/23 21:30 03/06/23 21:32 03/06/23 21:32 Temperature Pulse Rate 72 74 Respiratory Rate 24 22 Blood Pressure 146/83 H Pulse Oximetry 97 98 Oxygen Delivery Method 03/06/23 22:00 03/06/23 22:00 03/06/23 22:30 Temperature Pulse Rate 74 68 Respiratory Rate 20 14 Blood Pressure 156/79 H Pulse Oximetry 98 98 Oxygen Delivery Method Room Air 03/06/23 22:30 03/06/23 22:45 Temperature 98.2 F Pulse Rate Respiratory Rate Blood Pressure 131/74 Pulse Oximetry Oxygen Delivery Method Medical Decision Making Medical Records Medical records reviewed: Yes I reviewed the patient's medical records. Lab Data Lab results reviewed: Yes I reviewed the patient's lab results. 03/06/23 21:15 03/06/23 21:15 Labs: Lab Results 03/06/23 Range/Units 21:15 WBC 10.0 (4.5-11.0) X10^3/uL RBC 4.70 (4.0-5.2) X10^6/uL Hgb 13.7 (12.0-16.0) g/dL Hct 39.9 (36-46) % MCV 84.9 (80-100) fL MCH 29.2 (26-34) PG MCHC 34.4 (30-36) % RDW 13.7 (11.6-14.8) % Plt Count 343 (150-400) X10^3/uL Neut % (Auto) 60.8 (50-75) % Lymph % (Auto) 31.4 (25-40) % [place] % (Auto) 6.2 (3-14) % Eos % (Auto) 1.2 L (2-4) % Baso % (Auto) 0.4 (0-2) % Neut # (Auto) 6100 (9079-5223) /uL Lymph # (Auto) 3100 (0019-7173) /uL [place] # (Auto) 600 (0-900) /uL Eos # (Auto) 100 (0-450) /uL Baso # (Auto) 0 (0-100) /uL PT 13.0 H (9.4-12.5) SECONDS INR 1.1 (0.9-1.3) APTT 30 (25.1-36.5) SECONDS Sodium 136 L (137-145) mmol/L Potassium 4.1 (3.4-5.1) mmol/L Chloride 101 (98-107) mmol/L Carbon Dioxide 26 (22-32) mmol/L BUN 12 (7-17) mg/dL Creatinine 0.48 L (0.52-1.04) mg/dL Estimated GFR > 60 (>60) mL/min BUN/Creatinine Ratio 25.0 H (6-22) Glucose 98 (70-100) mg/dL Calcium 9.7 (8.4-10.2) mg/dL Magnesium 2.0 (1.6-2.3) mg/dL Total Bilirubin 1.1 (0.2-1.3) mg/dL AST 32 (14-36) IU/L ALT 32 (<35) IU/L Alkaline Phosphatase 43 (38-126) U/L Total Creatine Kinase 32 (30-135) U/L Troponin I < 0.012 (0.01-0.034) ng/mL Total Protein 7.9 (6.3-8.2) g/dL Albumin 4.2 (3.5-5.0) g/dL Globulin 3.7 (1.7-4.1) g/dL Albumin/Globulin Ratio 1.1 (1.0-2.8) Lipase 137 (23-300) U/L Imaging Data Chest x-ray: Radiologist's Impression: PROCEDURE: XR CHEST 1V INDICATIONS: chest pain TECHNIQUE: One view of the chest was acquired. COMPARISON: [facility], , XR CHEST 1V, 10/24/2022, 12:54. FINDINGS: Surgical changes and devices: None. Lungs and pleura: Lungs are clear. No pleural effusions or pneumothorax. Mediastinum: Mediastinal contours appear normal. Heart size is normal. Bones and chest wall: No suspicious bony lesions. Overlying soft tissues appear unremarkable. IMPRESSION: No acute cardiopulmonary abnormalities or focal airspace disease. ECG Data Attestation: I personally reviewed and interpreted this ECG as follows: Interpretation: Sinus rhythm Ventricular rate is 73 Normal axis Normal QRS Normal QTC No ST T wave changes MDM Narrative Medical decision making narrative: Sinus rhythm on the EKG. Labs unremarkable. Troponin is negative. Has had a recent risk stratification testing to include echocardiogram and stress test. Low suspicion for ACS. We did discuss the possibility of a transient arrhythmia. Discussed the limitations of being able to diagnose this without her being monitored during the time of the symptoms. She expressed understanding of this. There was no indication for admission to the hospital. No indication to start any new medications until we have a definitive diagnosis of what is causing her palpitations. Will discharge patient home with instructions to contact her primary doctor to discuss the indications were Holter monitor. She was given return precautions. She expressed understanding and agreement. Discharge Plan Departure Patient Disposition: Home Clinical Impression: Palpitations Instructions: DI for Palpitations Activity Restrictions/Additional Instructions: Recommend that you continue to take all of your medications as directed. I also recommend that you contact your primary doctor for a follow-up to discuss the indications for a Holter monitor. Return to the emergency department for new or worsening symptoms. Prescriptions: No Action lisinopril 20 mg tablet 20 mg PO BEDTIME meloxicam 15 mg tablet 15 mg PO DAILY Referrals: Liliana Hanna PA-C [Primary Care Provider] - Stand Alone Forms: Patient Portal/API
== END 2023-03-06 22:45 | disposition home or self-care (01) ==
PROVIDERS: Emergency Provider Emergency Medicine; PCP Physician Assistant Medical
DX: R00.2 Palpitations (principal)
CPT/HCPCS: 36415; 71045; 80053; 82550; 83690; 83735; 84484; 85025; 85610; 85730; 93005; 93010; 99283

== ENCOUNTER → 2024-07-06 13:46 | Outpatient (CLI) | payer OTHER, SELFPAY ==
[2022-10-24 17:26] VITALS: BMI 36.4
--- NOTE | 2024-07-06 13:49 | DI.RAD.S_ITS ---
PROCEDURE: XR CERVICAL SPINE 2V OR 3V INDICATIONS: NECK PAIN TECHNIQUE: 3 view(s) of the cervical spine were acquired. COMPARISON: None. FINDINGS: Bones: No fractures or dislocations to the T1 level. Posterior hardware at the C3 through C7 levels without evidence of complication. The lateral masses of C1 appear intact on the odontoid view. No suspicious bony lesions. Soft tissues: No prevertebral soft tissue swelling. IMPRESSION: No evidence of acute osseous abnormality or hardware complication. Dictated by: Juan Delarosa M.D. on 07/07/2024 at 2:13 Approved by: Juan Delarosa M.D. on 07/07/2024 at 2:33
== END ==
LOC: RAD 13:48
PROVIDERS: PCP Physician Assistant Medical; Referring Provider Orthopaedic Surgery; Visit Provider Orthopaedic Surgery
DX: M47.12 Other spondylosis with myelopathy, cervical region (principal); M47.22 Other spondylosis with radiculopathy, cervical region; Z98.1 Arthrodesis status
CPT/HCPCS: 72040

== ENCOUNTER → 2024-10-07 11:16 | Outpatient (CLI) | payer OTHER, SELFPAY ==
[2022-10-24 17:26] VITALS: BMI 36.4
--- NOTE | 2024-10-07 11:18 | DI.MG.S_ITS ---
MM screening mammo BI: 10/07/2024. BI-RADS: 2 CLINICAL: 59-year old female for bilateral screening mammogram. Tyrer-Cuzick lifetime risk of 9.7%. No personal or first-degree family history of breast cancer. The patient had prior bilateral breast biopsies. PRIOR EXAMS 05/21/2022, 12/22/2021, 12/23/2020. MAMMOGRAPHY TECHNIQUE: 2D and 3D (tomosynthesis) digital mammographic views obtained, with additional images as needed for full coverage. Current study was also evaluated with a Computer Aided Detection (CAD) system. DENSITY B. There are scattered areas of fibroglandular density. MAMMOGRAPHY FINDINGS Right: No suspicious mass, asymmetry, microcalcification, or other abnormality seen. Left: Biopsy marker present on the left. There are no suspicious masses, calcifications, or other findings in the breast. IMPRESSION: Right * No evidence of malignancy. Left * No evidence of malignancy with benign findings. RECOMMENDATIONS Bilateral * Annual screening mammography. OVERALL ASSESSMENT CATEGORY BI-RADS-2: Benign. The [employer] recommends annual screening mammography beginning at age 40 for women with average risk of breast cancer. ELECTRONICALLY SIGNED: Mary Jaime M.D. on 10/07/2024 at 10:15:08 PM PT Interpreting Station ID: [id number]
== END ==
PROVIDERS: PCP Family Medicine; Referring Provider Family Medicine; Visit Provider Family Medicine
DX: Z12.31 Encounter for screening mammogram for malignant neoplasm of breast (principal)
CPT/HCPCS: 77063; 77067

== ENCOUNTER → 2025-02-23 09:15 | Outpatient (CLI) | payer OTHER, SELFPAY ==
[2022-10-24 17:26] VITALS: BMI 36.4
== END ==
PROVIDERS: PCP Family Medicine; Referring Provider Family Medicine
DX: R73.03 Prediabetes (principal); Z71.3 Dietary counseling and surveillance
CPT/HCPCS: 97802

== ENCOUNTER → 2025-02-23 09:17 | Outpatient (CLI) | payer OTHER, SELFPAY ==
[2022-10-24 17:26] VITALS: BMI 36.4
[2025-02-23 11:29] LABS: Hemoglobin A1C% w Est Avg Glu 5.7 % (4.0-6.0)
[2025-02-23 11:31] LABS: Alanine Aminotransferase 28 IU/L (<35); Albumin 4.5 g/dL (3.5-5.0); Albumin Globulin Ratio 1.4 (1.0-2.8); Alkaline Phosphatase 53 U/L (38-126); Blood Urea Nitrogen 15 mg/dL (7-17); Calcium 9.8 mg/dL (8.4-10.2); Carbon Dioxide 26 mmol/L (22-32); Chloride 104 mmol/L (98-107); Cholesterol 227 mg/dL (140-199); Estimated Glomerular Filt Rate > 60 mL/min (>60); Globulin 3.3 g/dL (1.7-4.1); Glucose 101 mg/dL (70-99); HDL Cholesterol 48 mg/dL (40-60); HEMOLYSIS < 15 (0-50); Potassium 4.7 mmol/L (3.4-5.1); Sodium 139 mmol/L (137-145); Total Protein 7.8 g/dL (6.3-8.2); Triglycerides 135 mg/dL (35-150)
== END ==
PROVIDERS: PCP Family Medicine; Referring Provider Family Medicine; Visit Provider Family Medicine
DX: Z13.1 Encounter for screening for diabetes mellitus (principal); R79.89 Other specified abnormal findings of blood chemistry; E78.5 Hyperlipidemia, unspecified
CPT/HCPCS: 80053; 80061; 83036